=== PATIENT | female | born 1965 | race Caucasian/White ===

== ENCOUNTER 2017-03-21 23:34 | Emergency (ER) | payer OTHER ==
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
[~2017-03-21 23:34] MED LIST: FLEXERIL PO; KETOPROFEN PO; LORTAB 7.5-5001 TAB PO; NO MEDICATIONS; PRILOSEC PO; VICODIN 5/500 T1 TAB PO; [UNRECOGNIZED DRUG - OTHER]
== END 2017-03-22 01:28 | disposition home or self-care (01) ==
LOC: SED 23:34
DX: S16.1XXA Strain of muscle, fascia and tendon at neck level, initial encounter (principal); S00.83XA Contusion of other part of head, initial encounter; S80.12XA Contusion of left lower leg, initial encounter; V49.00XA Driver injured in collision with unspecified motor vehicles in nontraffic accident, initial encounter
CPT/HCPCS: 70450; 72125; 99284